=== PATIENT | female | born 1960 | race Caucasian/White ===

== ENCOUNTER 2018-09-28 13:33 | Inpatient (IN) | payer BC ==
[~2018-09-28] VITALS: Ht 162.6 cm; Wt 104.1 kg
--- NOTE | ~2018-09-28 | MORECARE ---
CASE MANAGEMENT DISCHARGE SUMMARY PATIENT: RIO DAVISON UNIT: [id number] ADM DATE: 09/28/18 AGE: 58 : 56 SEX: F ROOM/BED: D.2237 AUTHOR: MELIZADOC PHYSICIAN: REFERRING PHYSICIAN: CRISTIANO SALCEDO MD DATE OF SERVICE: 09/30/18 Discharge Plan Patient Name: RIO DAVISON Facility: [facility]:[place] : 1960 Planned Disposition: Home Anticipated Discharge Date: 09/30/18 Discharge Date: 09/30/2018 Expected LOS: 2 Initial Reviewer: [email or web address] Initial Review Date: 09/30/2018 Generated: 09/30/18 4:09 pm Comments DCP- Discharge Planning Updated by [email or web address]: Pavithra Harman on 09/30/18 8:[address] Patient Name: RIO DAVISON Admission Status: Urgent Accout number: [id number] Admission Date: 09-28-2018 : 1960 Admission Diagnosis: Attending: CRISTIANO SALCEDO Current LOS: 2 Anticipated DC Date: 09-30-2018 Planned Disposition: Home Primary Insurance: [employer] Discharge Planning Comments: CM met with patient and her to discuss discharge planning. She is independent with all ADL's and IADL's. States she has no DME or need any DME. States she does not have any outside community resources assisting in the home. Declines need for HHS. states he is retired and will assist her with needs. No needs identified at this time. CM will continue to follow and assist with discharge planning/needs. Wall Taper Helper: Pavithra Harman DCPIA - Discharge Planning Initial Assessment Updated by [email or web address]: Pavithra Harman on 09/30/18 9:31 am * Is the patient Alert and Oriented? Yes * How many steps to enter\exit or inside your home? 1/0 * PCP Ashley * Pharmacy [facility] * Preadmission Environment Home with Family * ADLs Independent * Equipment None * List name and contact numbers for known caregivers / representatives who currently or will assist patient after discharge: Richard fowler - [phone] * Verbal permission to speak to the caregivers and representatives has been obtained from the patient. Yes * Community resources currently utilized None * Additional services required to return to the preadmission environment? No * Can the patient safely return to the preadmission environment? Yes * Has this patient been hospitalized within the prior 30 days at any hospital? No Last DP export: 09/30/18 8:39 Patient Name: RIO DAVISON Page [id number] at 1509 All edits/amendments must be made on the electronic document DICTATION DATE: 09/30/18 150 MANAGER PORTABLE: TYLER 09/30/18 1509 RPT#: [id number] DC DATE:09/30/18 STATUS: DIS IN [facility] [address] [place] [address] END OF REPORT
--- NOTE | ~2018-09-28 | MORECARE ---
CASE MANAGEMENT DISCHARGE SUMMARY PATIENT: RIO DAVISON UNIT: [id number] ADM DATE: 09/28/18 AGE: 58 : 56 SEX: F ROOM/BED: D.[facility] AUTHOR: JOSÉ HAIDER PHYSICIAN: REFERRING PHYSICIAN: CRISTIANO SALCEDO MD DATE OF SERVICE: 09/30/18 Discharge Plan Patient Name: RIO DAVISON [facility] [facility] 1960 Planned Disposition: Home Anticipated Discharge Date: 09/30/18 Discharge Date: Expected LOS: 2 Initial Reviewer: [email or web address] Initial Review Date: 09/30/2018 Generated: 09/30/18 10:31 am DCPIA - Discharge Planning Initial Assessment Updated by [email or web address]: Pavithra Harman on 09/30/18 9:31 am * Is the patient Alert and Oriented? Yes * How many steps to enter\exit or inside your home? 1/0 * PCP Ashley * [facility] * Preadmission Environment Home with Family * ADLs Independent * Equipment None * List name and contact numbers for known caregivers / representatives who currently or will assist patient after discharge: [place] [facility] - [phone] * Verbal permission to speak to the caregivers and representatives has been obtained from the patient. Yes * Community resources currently utilized None * Additional services required to return to the preadmission environment? No * Can the patient safely return to the preadmission environment? Yes * Has this patient been hospitalized within the prior 30 days at any hospital? No Patient Name: RIO DAVISON Page [id number] at 0931 All edits/amendments must be made on the electronic document DICTATION DATE: 09/30/18930 HEEL SEAM RUBBER: TYLER 09/30/18930 RPT#: [id number] DC DATE: STATUS: ADM IN [facility] [address] [place] [address] END OF REPORT
--- NOTE | ~2018-09-28 | MORECARE ---
CASE MANAGEMENT DISCHARGE SUMMARY PATIENT: RIO DAVISON UNIT: [id number] ADM DATE: 09/28/18 AGE: 58 : 56 SEX: F ROOM/BED: D.2237 AUTHOR: MELIZA,DOC PHYSICIAN: REFERRING PHYSICIAN: CRISTIANO SALCEDO MD DATE OF SERVICE: 09/30/18 Discharge Plan Patient Name: RIO DAVISON Facility: [facility]:[place] : 1960 Planned Disposition: Home Anticipated Discharge Date: 09/30/18 Discharge Date: Expected LOS: 2 Initial Reviewer: [email or web address] Initial Review Date: 09/30/2018 Generated: 09/30/18 10:39 am Comments DCP- Discharge Planning Updated by [email or web address]: Pavithra Harman on 09/30/18 8:[address] Patient Name: RIO DAVISON Admission Status: Urgent Accout number: [id number] Admission Date: 09-28-2018 : 1960 Admission Diagnosis: Attending: CRISTIANO SALCEDO Current LOS: 2 Anticipated DC Date: 09-30-2018 Planned Disposition: Home Primary Insurance: [employer] Discharge Planning Comments: CM met with patient and her to discuss discharge planning. She is independent with all ADL's and IADL's. States she has no DME or need any DME. States she does not have any outside community resources assisting in the home. Declines need for HHS. states he is retired and will assist her with needs. No needs identified at this time. CM will continue to follow and assist with discharge planning/needs. Coding Clerk: Pavithra Harman DCPIA - Discharge Planning Initial Assessment Updated by [email or web address]: Pavithra Harman on 09/30/18 9:31 am * Is the patient Alert and Oriented? Yes * How many steps to enter\exit or inside your home? 1/0 * PCP Ashley * [facility] * Preadmission Environment Home with Family * ADLs Independent * Equipment None * List name and contact numbers for known caregivers / representatives who currently or will assist patient after discharge: Richard janeth - [phone] * Verbal permission to speak to the caregivers and representatives has been obtained from the patient. Yes * Community resources currently utilized None * Additional services required to return to the preadmission environment? No * Can the patient safely return to the preadmission environment? Yes * Has this patient been hospitalized within the prior 30 days at any hospital? No Last DP export: 09/30/18 8:31 Patient Name: RIO DAVISON Page [id number] at 0939 All edits/amendments must be made on the electronic document DICTATION DATE: 09/30/18938 WINDOW GLASS CUTTER OFF: TYLER 09/30/18938 RPT#: [id number] DC DATE: STATUS: ADM IN [facility] [address] [place] [address] END OF REPORT
[2018-09-28 15:56] VITALS: BP 122/49; BMI 39.4
[2018-09-28 16:23] LABS: BASOPHILS 0.5 % (0-2); EOSINOPHILS 3.7 % (0-7); IMMATURE GRANULOCYTES 0.3 % (0-5); LYMPHOCYTES 12.7 % (15-50); MCH 31.4 pg (26.0-34.0); MCHC 34.4 g/dL (31.0-37.0); MCV 91.4 fL (80.0-100.0); MEAN PLATELET VOLUME 10.1 fL (7.4-10.4); MONOCYTES 10.7 % (2-11); NEUTROPHILS 72.1 % (40-80); PLATELET COUNT 130 10x3/uL (130-400); RDW 13.3 % (11.5-14.5)
[2018-09-28 17:00] LABS: ALBUMIN 3.1 g/dL (3.4-5.0); ANION GAP 9.9 mmol/L (8-16); BILIRUBIN - TOTAL 1.91 mg/dL (0.2-1.3); CALCIUM 8.6 mg/dL (8.5-10.1); CARBON DIOXIDE 29.2 mmol/L (21.0-32.0); CREATININE - SERUM 1.1 mg/dL (0.6-1.3); POTASSIUM - SERUM 3.1 mmol/L (3.5-5.1)
[2018-09-28 19:49] LABS: AMYLASE - SERUM 20 U/L (25-115); LIPASE 115 U/L (73-393)
[2018-09-28 21:44] VITALS: Ht 162.6 cm; Wt 104.1 kg
[2018-09-28 22:38] VITALS: BP 156/63; BP 169/106
[2018-09-29 01:05] VITALS: BP 106/40
[2018-09-29 06:35] VITALS: BP 110/54
[2018-09-29 08:15] VITALS: BP 111/42
[2018-09-29 11:17] VITALS: BP 145/49
[2018-09-29 16:02] VITALS: BP 101/41
[2018-09-29 21:55] VITALS: BP 92/34
[2018-09-30 05:48] VITALS: BP 161/89
[2018-09-30 06:46] LABS: BASOPHILS 0.2 % (0-2); EOSINOPHILS 2.7 % (0-7); HEMATOCRIT 27.5 % (36.0-48.0); HEMOGLOBIN 9.1 g/dL (12-16); IMMATURE GRANULOCYTES 0.6 % (0-5); LYMPHOCYTES 12.3 % (15-50); MCH 30.4 pg (26.0-34.0); MCHC 33.1 g/dL (31.0-37.0); MEAN PLATELET VOLUME 10.7 fL (7.4-10.4); MONOCYTES 11.4 % (2-11); NEUTROPHILS 72.8 % (40-80); PLATELET COUNT 133 10x3/uL (130-400); RBC 2.99 10x6/uL (4.00-5.40); RDW 13.5 % (11.5-14.5); WBC 5.3 10x3/uL (4.8-10.8)
[2018-09-30 07:03] LABS: ALBUMIN 2.6 g/dL (3.4-5.0); ANION GAP 10.7 mmol/L (8-16); BILIRUBIN - TOTAL 1.29 mg/dL (0.2-1.3); CALCIUM 8.1 mg/dL (8.5-10.1); CARBON DIOXIDE 24.9 mmol/L (21.0-32.0); POTASSIUM - SERUM 3.6 mmol/L (3.5-5.1)
[2018-09-30 08:17] VITALS: BP 100/47
[2018-09-30] MEDS ORDERED: VIBRAMYCIN 100100 MG PO (08:33)
[2018-09-30 09:16] LABS: HEPATITIS C ANTIBODY <0.1 S/CO RAT (0.0-0.9)
[2018-09-30 12:17] VITALS: BP 101/47
[2018-09-30 13:15] LABS: EBV - EARLY ANTIGEN AB IGG <9.0 U/mL (0.0-8.9); EBV VIRAL CAPSID AB IGG 82.7 U/mL (0.0-17.9); EBV VIRAL CAPSID AB IGM <36.0 U/mL (0.0-35.9)
[2018-10-01] MEDS ORDERED: COREG 3.1253.125 MG (19:33)
[2018-10-01] MEDS ORDERED: CARBATROL100 MG (19:33)
[2018-10-01] MEDS ORDERED: RIZATRIPTAN5 M1 (19:33)
[2018-10-01] MEDS ORDERED: PRINZIDE 20/12.1 TA1 (19:33)
[2018-10-01] MEDS ORDERED: RANITIDINE HCL150 M1 (19:34)
[2018-10-01] MEDS ORDERED: VALTREX1000 MG (19:34)
[2018-10-01] MEDS ORDERED: LEVOXYL25 MCG (19:35)
[2018-10-01] MEDS ORDERED: ZOFRAN ODT4 MG/UDTAB PO (22:35)
== END 2018-09-30 13:48 | disposition home or self-care (01) | DRG 443 ==
LOC: D.MS 13:33
PROVIDERS: Family Medicine; Student in an Organized Health Care Education/Training Program
DX: B17.9 Acute viral hepatitis, unspecified (principal); I10 Essential (primary) hypertension

== ENCOUNTER 2018-10-01 19:27 | Emergency (ER) | payer BC ==
[~2018-10-01] VITALS: Ht 162.6 cm; Wt 104.1 kg
[~2018-10-01 19:27] MED LIST: VIBRAMYCIN 100100 MG PO
[2018-10-01 19:30] VITALS: Ht 162.6 cm; Wt 104.1 kg
[2018-10-01] MEDS ORDERED: COREG 3.1253.125 MG (19:33)
[2018-10-01] MEDS ORDERED: CARBATROL100 MG (19:33)
[2018-10-01] MEDS ORDERED: PRINZIDE 20/12.1 TA1 (19:33)
[2018-10-01] MEDS ORDERED: RIZATRIPTAN5 M1 (19:33)
[2018-10-01] MEDS ORDERED: RANITIDINE HCL150 M1 (19:34)
[2018-10-01] MEDS ORDERED: VALTREX1000 MG (19:34)
[2018-10-01] MEDS ORDERED: LEVOXYL25 MCG (19:35)
[2018-10-01 20:03] LABS: BASOPHILS 0 % (0-2); EOSINOPHILS 2.6 % (0-7); HEMATOCRIT 30.3 % (36.0-48.0); HEMOGLOBIN 10.2 g/dL (12-16); IMMATURE GRANULOCYTES 0.5 % (0-5); LYMPHOCYTES 9.9 % (15-50); MCHC 33.7 g/dL (31.0-37.0); MCV 92.1 fL (80.0-100.0); MEAN PLATELET VOLUME 11.1 fL (7.4-10.4); MONOCYTES 7.8 % (2-11); NEUTROPHILS 79.2 % (40-80); PLATELET COUNT 155 10x3/uL (130-400); RBC 3.29 10x6/uL (4.00-5.40); RDW 13.4 % (11.5-14.5); WBC 7.4 10x3/uL (4.8-10.8)
[2018-10-01 20:13] LABS: ALBUMIN 2.8 g/dL (3.4-5.0); ANION GAP 13.1 mmol/L (8-16); BILIRUBIN - TOTAL 1.3 mg/dL (0.2-1.3); CALCIUM 8.6 mg/dL (8.5-10.1); CARBON DIOXIDE 25.3 mmol/L (21.0-32.0); CREATININE - SERUM 1.1 mg/dL (0.6-1.3); POTASSIUM - SERUM 3.4 mmol/L (3.5-5.1); PROTEIN - SERUM 6.8 g/dL (6.4-8.2)
[2018-10-01 20:56] LABS: APPEARANCE CLEAR (CLEAR); BILIRUBIN 1+ (NEGATIVE); COLOR DK YELLOW (YELLOW); GLUCOSE NEGATIVE (NEGATIVE); KETONE NEGATIVE (NEGATIVE); NITRITE NEGATIVE (NEGATIVE); PROTEIN 1+ mg/dL (NEGATIVE)
[2018-10-01 20:58] LABS: BACTERIA FEW /hpf (NONE SEEN); RED CELLS - URINE 0-5 /hpf (0-5); WHITE CELLS - URINE 0-5 /hpf (0-5)
[2018-10-01] MEDS ORDERED: ZOFRAN ODT4 MG/UDTAB PO (22:35)
[2018-10-01 23:08] VITALS: BP 120/79
== END 2018-10-01 23:09 | disposition home or self-care (01) ==
LOC: D.ER 19:27
PROVIDERS: Family Medicine
DX: B15.9 Hepatitis A without hepatic coma (principal); R11.2 Nausea with vomiting, unspecified; I10 Essential (primary) hypertension; K21.9 Gastro-esophageal reflux disease without esophagitis